=== PATIENT | female | born 1970 | race Native Hawaiian/Other Pacific Islander ===

== ENCOUNTER 2019-01-14 17:07 | Emergency (ER) | payer OTHER ==
[~2019-01-14] VITALS: Ht 162.6 cm; Wt 54.4 kg
[2019-01-14 18:45] VITALS: BP 136/74; TEMP 97.2
== END 2019-01-14 18:50 | disposition home or self-care (01) ==
LOC: ED 17:07
DX: S40.011A Contusion of right shoulder, initial encounter (principal); W17.89XA Other fall from one level to another, initial encounter; Y92.098 Other place in other non-institutional residence as the place of occurrence of the external cause
CPT/HCPCS: 99283